=== PATIENT | male | born 1995 ===

== ENCOUNTER 2024-03-19 14:00 | Emergency (ER) | payer BC, SELFPAY ==
--- NOTE | 2024-03-19 14:00 | DI.RAD_ITS ---
Exam(s) XR FINGER RT LITTLE EXAM: XR FINGER RT LITTLE CLINICAL HISTORY: deformity distal tip. TECHNIQUE: 2D digital imaging was performed. COMPARISON: No exams were available for comparison FINDINGS: 3 views There is a fracture at the dorsal base the distal phalanx of the 5th finger with displacement of the 2 x 2.5 mm fracture fragment approximately by approximately 2 millimeters. There is flexion at the D IP joint. No other fractures identified. IMPRESSION: Displaced fracture avulsion at the dorsal base of the distal phalanx as described above. There is an element of flexion at the DIP joint which implies injury of the extensor tendon attachment site and unopposed flexor tendon activity DATA REPOSITORY: RADIATION DOSE DELIVERED:
[2024-03-19 14:02] VITALS: BP 130/76; PULSE 89; RESP 16; TEMP 37.4; O2SAT 97
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
[2024-03-19] MEDS: Ibuprofen 800 MG TAB PO (14:25)
[2024-03-19] MEDS: Acetaminophen 500 MG TAB 1000 MG PO (14:25)
--- NOTE | 2024-03-19 14:56 | NUR.NOTE ---
Referral given to Care Managers to assist Pt with setting up an appointment with [facility] as soon as possible to follow up to Mallet Finger Injury with work needed.
--- OUTSIDE RECORDS SUMMARY | 2024-03-19 15:07 | XMS_ITS | Referral Summary ---
Author Organization [facility] Address [address] [place] [address] Care Team Providers Care Video Game Tester Name Role Phone Unavailable Primary Care Provider Unavailabl e Social History Tobacco Use Types Packs/Day Years Used Date Smoking Tobacco: Never Assessed Interpersonal Safety Answer Date Record ed Physically Hurt Never 06/10/2020 Verbally Threaten Not on file 06/10/2020 Sex and Gender Information Value Date Recorded Sex Assigned at Not on file Gender Identity Not on file Sexual Orientation Not on file Plan of Treatment Not on file
--- OUTSIDE RECORDS SUMMARY | 2024-03-19 15:07 | XMS_ITS | Encounter Summary ---
Author Organization [facility] Address [address] [place] [address] Care Team Providers Care Supervisor Poultry Processing Name Role Phone Unavailable Primary Care Provider Unavailabl e Encounter Details Date Type Department Care Team (Late st Contact Info) Description 10/09/2020 Lab Requisition [facility] Pathology & Laboratory Medicine - [facility] [address] [place] [address] Outr Resulting Lab, Provider Social History Tobacco Use Types Packs/Day Years Used Date Smoking Tobacco: Never Assessed Interpersonal Safety Answer Date Record ed Physically Hurt Never 06/10/2020 Verbally Threaten Not on file 06/10/2020 Sex and Gender Information Value Date Recorded Sex Assigned at Not on file Gender Identity Not on file Sexual Orientation Not on file documented as of this encounter Plan of Treatment Not on file documented as of this encounter Procedures Procedure Name Priority Date/Time Associated Diagnosis Comments ZZCOVID-19 TEST [facility] Today 10/09/2020 8:43 EDT COVID-19 TESTING Routine 10/09/2020 8:43 EDT documented in this encounter Results * COVID-19 TEST [facility] PCR (10/09/2020 8:43 EDT) Swab ENTIRE NASOPHARYNX / Unknown 10/09/2020 8:43 EDT 10/09/2020 16:52 EDT Provider Outr Resulting Lab MICROBIOLOGY - GENERAL ORDERABLES [facility] [address] [place] [address] * (ABNORMAL) COVID-19 TESTING (10/09/2020 8:43 EDT) COVID-19 rt-PCR Result Positive( AA) Negative 10/10/2020 12:31 EDT [facility] Comment: This test has not been FDA cleared or approved. This test has been authorized by FDA under an EUA for use by authorized laboratories. This test has been authorized only for detection of nucleic acid from 2019-nCoV, not for any other viruses or pathogens. This test is only authorized for the duration of the declaration that circumstances exist justifying the authorization of emergency use of in vitro diagnostic tests for detection and/or diagnosis of 2019-nCoV under section 564(b)(1) of Act, 21 U.S.C ?? 360bbb-3(b) (1), unless the authorization is terminated or revoked sooner. This test was developed and its performance characteristics determined by [facility]. It has not been cleared or approved by the US Food and Drug Administration. FDA does not require this test to go through premarket FDA review. This test is used for clinical purposes. It should not be regarded as investigational or for research. This laboratory is certified under the Clinical Laboratory Improvement Amendments (CLIA) as qualified to perform high complexity clinical laboratory testing. This test is based on the [facility] COVID-19 Emergency Use Authorization (EUA) assay, with minor modification as defined by the FDA Performed on the [employer] 7 Pro RT-PCR System. Performing Lab TED [facility] Lab 10/10/2020 12:31 EDT [facility] Swab 10/09/2020 8:43 EDT 10/09/2020 16:52 EDT Provider Outr Resulting Lab MICROBIOLOGY - GENERAL ORDERABLES [facility] [address] [place] [address] documented in this encounter Visit Diagnoses Not on filedocumented in this encounter Additional Health Concerns Infection Onset Date Last Indicated Resolved Time COVID-19 10/09/2020 10/09/2020 11/08/2020 22:1 5 EDT documented as of this encounter
--- OUTSIDE RECORDS SUMMARY | 2024-03-19 15:07 | XMS_ITS | Clinical Summary ---
Author Organization [facility] Address [address] [place] [address] Care Team Providers Care Traffic Analyst Name Role Phone Unavailable Primary Care Provider [...] Orientation Not on file Plan of Treatment Health Maintenance Due Date Last Done Comments Hepatitis C Screen 1994 Hepatitis B Vaccine (1 of 3 - 19+ 3-dose series) 10/05 COVID-19 Vaccine ( season) 2023
--- OUTSIDE RECORDS SUMMARY | 2024-03-19 15:07 | XMS_ITS | Encounter Summary ---
Author Organization [facility] Address [address] [place] [id number] Care Team Providers Care Billing Customer Service Representative Name Role Phone Unavailable Primary Care Provider Unavailabl e Encounter Details Date Type Department Care Team (Late st Contact Info) Description 10/12/2019 Lab Requisition [facility] Pathology & Laboratory Medicine - [address] [address] Unknown, Provider, Social History Tobacco Use Types Packs/Day Years Used Date Smoking Tobacco: Never Assessed Sex and Gender Information Value Date Recorded Sex Assigned at Not on file Gender Identity Not on file Sexual Orientation Not on file documented as of this encounter Plan of Treatment Not on file documented as of this encounter Procedures Procedure Name Priority Date/Time Associated Diagnosis Comments CHLAMYDIA/N. GONORRHOEAE AMPLIFIED NUCLEIC ACID Routine 10/12/2019 10:13 EDT documented in this encounter Results * CHLAMYDIA/N. GONORRHOEAE AMPLIFIED RNA (10/12/2019 10:13 EDT) Neisseria gonorrhoeae Result Negative Negative 10/15/2019 14:17 EDT [facility] Chlamydia trachomatis Result Negative Negative 10/15/2019 14:17 EDT [facility] Urine URINE / Unknown Urine Collect / Unknown 10/12/2019 10:13 EDT 10/12/2019 21:25 EDT Provider Unknown MICROBIOLOGY - GENER AL ORDERABLES [facility] [address] [place] [address] documented in this encounter Visit Diagnoses Not on filedocumented in this encounter Additional Health Concerns Infection Onset Date Last Indicated Resolved Time COVID-19 10/09/2020 10/09/2020 11/08/2020 22:1 5 EDT documented as of this encounter
[2024-03-19 15:10] VITALS: BP 130/76; PULSE 70; RESP 16; TEMP 37.1; O2SAT 97
== END 2024-03-19 15:15 | disposition home or self-care (01) ==
LOC: ER 15:05
PROVIDERS: Emergency Provider Student in an Organized Health Care Education/Training Program
DX: S62.636A Displaced fracture of distal phalanx of right little finger, initial encounter for closed fracture (principal); M20.011 Mallet finger of right finger(s); V18.2XXA Unspecified pedal cyclist injured in noncollision transport accident in nontraffic accident, initial encounter
CPT/HCPCS: 26720; 99283; 73140